=== PATIENT | male | born 1950 | race Caucasian/White ===

== ENCOUNTER 2025-02-21 09:00 | Emergency (ER) | payer OTHER, SELFPAY ==
[2025-02-21 09:17] VITALS: BP 165/85
--- NOTE | 2025-02-21 09:50 | EDRN ---
This RN assumed care of pt at 9:50.
--- NOTE | 2025-02-21 09:53 | ED.GENMED ---
History of Present Illness
General
Chief Complaint: Skin Surface Trauma
Time Seen by Provider: 02/21/25 09:32
History of Present Illness
History of Present Illness:
Patient is a 74-year-old male with history of hypertension, hyperlipidemia presenting to the emergency department with a puncture wound to his left foot. Patient states that he woke up last night and stepped on something. He noticed a small
puncture wound at the base. He was not wearing his shoe when this happened. He was indoors. He is unsure what he stepped on. No numbness tingling. No weakness. He did clean the wound. Unsure when his last tetanus was.
Past History
Past History
ED Past Medical History: Other (Kidney stone, benign prostatic hypertrophy )
ED Past Surgical History: None
Social History
Tobacco: Non-smoker
Alcohol: None
Living: with family
Employment: Employed
Phy Exam
Physical Exam
Physical Exam:
GENERAL: in no acute distress
HEENT: normocephalic, extraocular movements intact
NECK: normal inspection
RESPIRATORY: no respiratory distres
CARDIOVASCULAR: regular rate and rhythm
EXTREMITIES: Left foot at the dorsal aspect with puncture wound below the toe with possible foreign body palpated, no surrounding erythema edema or drainage, full ROM of toes, normal sensation
NEUROLOGIC: awake and alert, moves all extremities
SKIN: warm
Course
Orders/Labs/Results
Orders:
Orders
02/21/25 09:53
Tetanus/Diphth/Acelpertussis [Adacel] 0.5 ml IM .ONCE ONE
Foot, Left 3 View [CR Foot - Left Min 3 Views] Urgent
Comment:
Reason For Exam: puncture wound, foriegn body
Vital Signs
Initial and Last Documented VS:
Initial Vital Signs
Temp Pulse Resp BP Pulse Ox
98.4 F 64 18 165/85 99
02/21/25 09:17 02/21/25 09:17 02/21/25 09:17 02/21/25 09:17 02/21/25 09:17
Last Documented Vital Signs
Temp Pulse Resp BP Pulse Ox
98.4 F 64 18 165/85 99
02/21/25 09:17 02/21/25 09:17 02/21/25 09:17 02/21/25 09:17 02/21/25 09:55
MDM/Problems Addressed
Differential Diagnosis Includes:
74-year-old man presenting to the emergency department the puncture wound and concern for retained foreign body. On arrival patient is hypertensive. Exam does show puncture wound with possible foreign body palpated. Will proceed with x-ray for
visualization. Will update tetanus.
*Pulse Oximetry
SaO2: 99
Oxygen Mode of Delivery: Room air
Patient hypoxic: no
*Critical Care Note
Total Time (30-74mins, 75-104mins- exclusive of procedures): Not Applicable
Update Note
Update Note:
X-ray per my interpretation with no visualized foreign body. Did complete a bedside ultrasound which does show a small 2 mm object but shadowing. After shared decision making patient is amenable to incision and possible removal of foreign body.
This was successful. 2 inch toothpick was removed. Will empirically start antibiotics. On reassessment numbing has resolved and there is no residual pain. Will discharge patient at this time. Will give podiatry follow-up.
ED Attending Note
-
Portions of this chart may have been created with voice recognition software.� Occasional wrong word or��sound alike� substitutions may have occurred due to the inherent limitations of voice recognition software.
Discharge Plan
Departure
Patient Disposition: Home (Routine Discharge)
Date of Disposition: 02/21/25
Time of Disposition: 11:52
Patient with high blood pressure during this ER visit?: Yes
Discharge Problem:
Foreign body (FB) in soft tissue
Prescriptions:
New
doxycycline hyclate 100 mg capsule
100 mg PO BID 7 Days Qty: 14 0RF
No Action
tamsulosin 0.4 MG capsule
0.4 mg PO DAILY
Aleve
440 mg PO PRN PRN (Reason: pain)
Referrals:
Ta Dolan MD [Family Provider, Family Practice]
Reyes Navarrete MD [Active, Podiatry]
Activity Restrictions/Additional Instructions:
Thank You for choosing [facility].
It was a pleasure meeting you and taking part in your care.
You were seen in the Emergency Department today for a retained foreign body in your foot. While you were here we removed it. I did start you on antibiotics. If you notice any fevers, chills, drainage, redness or worsening pain please come back to
the emergency department immediately. Please continue to watch out for signs of infection daily. Please wash the wound multiple times a day with warm water and soap. Please follow-up with podiatry for a wound check.
We would like for you to follow up with your primary care physician for further evaluation. If you experience fever, worsening of your symptoms, or develop any other new or concerning symptoms, please return to the Emergency Department immediately.
Please see the attached sheet for additional information.
Interventions
Interventions:
*Risk Screen - Suicide Last Done: 02/21/25 09:17
*General Assessment Last Done: 02/21/25 10:01
*Neglect/Abuse Screening Last Done: 02/21/25 10:01
*ED COVID-19 Vaccine History Last Done: 02/21/25 10:01
*ED Influenza Vaccine History Last Done: 02/21/25 10:01
[facility] Risk Assessment Tool Last Done: 02/21/25 10:01
ED-Skin Assessment Last Done: 02/21/25 10:03
Discharge Date and Time
Print Language: PERSIAN
[2025-02-21 10:01] VITALS: BMI 26.0
[2025-02-21] MEDS: ADACEL 0.5 ML IM (10:11)
--- NOTE | 2025-02-21 10:54 | EDRN ---
Dr. Huang in room w/ pt at this time w/ US as xray showed no foreign body.
== END 2025-02-21 11:57 | disposition home or self-care (01) ==
LOC: EMR 09:00
PROVIDERS: EMERGENCY PHYSICIAN Student in an Organized Health Care Education/Training Program; FAMILY PHYSICIAN Family Medicine
DX: S91.342A Puncture wound with foreign body, left foot, initial encounter (principal); W22.8XXA Striking against or struck by other objects, initial encounter; Y92.003 Bedroom of unspecified non-institutional (private) residence as the place of occurrence of the external cause; I10 Essential (primary) hypertension; E78.5 Hyperlipidemia, unspecified; N40.0 Benign prostatic hyperplasia without lower urinary tract symptoms; Z23 Encounter for immunization
CPT/HCPCS: 99283; 10120; 90471; 73630; 90715